=== PATIENT | male | born 1985 | race Caucasian/White ===

== ENCOUNTER 2022-09-26 08:05 | Inpatient (IN) | payer MEDICAID ==
[~2022-09-26] VITALS: Ht 177.8 cm; Wt 100.2 kg
[2022-09-26 08:33] LABS: BG BASE EXCESS -28.9 mmol/L (-2.0-2.0); BG CARBOXYHEMOGLOBIN 1.5 % (0.5-1.5); BG DEOXYHEMOGLOBIN 1.8 % (0.0-5.0); BG FRACTION INSPIRED OXYGEN 21; BG HCO3 ACT 2.4 mmol/L (22.0-26.0); BG METHEMOGLOBIN 0.3 % (0.0-1.5); BG OXYGEN SATURATION 98.2 % (92.0-98.5); BG OXYHEMOGLOBIN 96.4 % (94.0-97.0); BG PCO2 12.3 mmHg (35.0-45.0); BG PH 6.915 (7.350-7.450); BG PO2 137.8 mmHg (75.0-100.0); BG SAMPLE SITE LEFT RADIAL; BG VENT MODE ROOM AIR
[2022-09-26] MEDS ORDERED: SODIUM CHLORIDE 0.9% 1,000 ML IV ONE (08:45)
[2022-09-26 08:56] LABS: CHLORIDE 88 mEq/L (98-107)
[2022-09-26 09:12] LABS: HEMATOCRIT. 52.4 % (42.0-52.0); HEMOGLOBIN. 16.5 g/dL (14.0-18.0); MEAN CORPUSCULAR HEMOGLOBIN 33.4 pg (28.0-32.0); MEAN PLATELET VOLUME 9.5 fl (7.4-10.4); PLATELET 267 x1000/uL (130-400); RED BLOOD CELL COUNT 4.94 mill/uL (4.7-6.1); RED CELL DISTRIBUTION WIDTH 14.1 % (11.6-14.6)
[2022-09-26] MEDS ORDERED: MORPHINE SULFATE 4 MG/ML CPJ (NOT FOR IM USE) IV ONE (09:30)
[2022-09-26] MEDS ORDERED: SODIUM CHLORIDE 0.9% 1000ML BAG (SEPSIS BOLUS) IV ONE (09:45)
[2022-09-26] MEDS ORDERED: CHLORDIAZEPOXIDE 25MG CAPSULE PO ONE (09:45)
[2022-09-26] MEDS ORDERED: LORAZEPAM 2MG/ML CPJ IV ONE (09:45)
[2022-09-26 10:11] LABS: PLATELET ESTIMATE NORMAL
[2022-09-26] MEDS ORDERED: HYDRALAZINE 20MG/ML VIAL IV PRN (11:45)
[2022-09-26] MEDS ORDERED: ACETAMINOPHEN 325MG TABLET PO PRN (11:45)
[2022-09-26] MEDS ORDERED: SODIUM CHLORIDE 0.9% 1,000 ML IV SCH (12:00)
[2022-09-26 12:04] LABS: BETA HYDROXYBUTYRATE 13.1 mMol/L (0.0-0.3)
[2022-09-26] MEDS ORDERED: INSULIN REGULAR (DRIP) 100 UNITS in SODIUM CHLORIDE 0.9% 99 ML IV ONE (12:30)
[2022-09-26] MEDS: INSULIN REGULAR 100U/100ML PMX 100 ML IV NR (13:20)
[2022-09-26] MEDS: PANTOPRAZOLE SODIUM 40 MG/VIAL IV SCH (14:07)
[2022-09-26 15:22] LABS: CHLORIDE 102 mEq/L (98-107)
[2022-09-26 16:45] LABS: CHLORIDE 101 mEq/L (98-107)
[2022-09-26] MEDS ORDERED: CALCIUM GLUCONATE 1GM PREMIX 50 ML IV NR (18:45)
[2022-09-26] MEDS ORDERED: SODIUM POLYSTYRENE SULFONATE 15 G/60 ML BOT PO NR (18:45)
[2022-09-26] MEDS ORDERED: CALCIUM GLUCONATE 1,000 MG in DEXT 5% WATER 90 ML IV ONE (18:45)
[2022-09-26] MEDS ORDERED: SODIUM BICARBONATE 8.4% 1 MEQ/ML 50ML SYR IV NR (18:45)
[2022-09-26] MEDS: ONDANSETRON HCL 4MG/2ML INJ IV PRN (20:11)
[2022-09-26 20:44] LABS: CHLORIDE 103 mEq/L (98-107)
[2022-09-26] MEDS: DEXT 5%/0.45% NACL 1000ML 1,000 ML IV SCH (21:58)
[2022-09-26] MEDS: CHLORDIAZEPOXIDE 25MG CAPSULE PO SCH ×2 (22:00→22:09)
[2022-09-26 22:45] VITALS: BP 144/75
[2022-09-26 23:00] VITALS: BP_SYST 139; BP_SYST 156; BP_DIAS 78; BP_DIAS 98
[2022-09-26 23:30] VITALS: BP 142/71
[2022-09-27] VITALS (28 sets, daily range): BP systolic 110–170; BP diastolic 52–108
[2022-09-27] MEDS ORDERED: DEXTROSE 50% WATER 50ML SYRINGE IV PRN ×2
[2022-09-27] MEDS: DEXT 5%/0.45% NACL 1000ML 1,000 ML IV SCH ×4 (00:54→17:59)
[2022-09-27] MEDS: INSULIN REGULAR 100U/100ML PMX 100 ML IV NR (00:54)
[2022-09-27] MEDS: BLOOD SUGAR DIAGNOSTIC STRIP TEST SCH ×22 (00:55→23:00)
[2022-09-27] MEDS: LORAZEPAM 2MG/ML CPJ IV PRN ×2 (00:56→10:43)
[2022-09-27 05:46] LABS: HEMATOCRIT. 44.1 % (42.0-52.0); HEMOGLOBIN. 14.8 g/dL (14.0-18.0); MEAN CORPUSCULAR HEMOGLOBIN 33.1 pg (28.0-32.0); MEAN CORPUSCULAR VOLUME 98.8 fL (80.0-94.0); MEAN PLATELET VOLUME 9.3 fl (7.4-10.4); PLATELET 150 x1000/uL (130-400); RED BLOOD CELL COUNT 4.46 mill/uL (4.7-6.1)
[2022-09-27] MEDS: CHLORDIAZEPOXIDE 25MG CAPSULE PO SCH ×3 (06:00→21:52)
[2022-09-27] MEDS: ONDANSETRON HCL 4MG/2ML INJ IV PRN (07:55)
[2022-09-27] MEDS: INSULIN REGULAR 100U/100ML PMX 100 ML IV SCH (07:55)
[2022-09-27] MEDS: PANTOPRAZOLE SODIUM 40 MG/VIAL IV SCH (08:54)
[2022-09-27 12:49] LABS: PLATELET ESTIMATE NORMAL
[2022-09-27 13:42] LABS: *AMPHETAMINES SCREEN URINE NEGATIVE (NEGATIVE); *BARBITURATES SCREEN URINE NEGATIVE (NEGATIVE); *BENZODIAZEPINES SCREEN URINE PRESUMTIVE POSITIVE (NEGATIVE); *COCAINE SCREEN URINE NEGATIVE (NEGATIVE); CANNABINOID URINE SCREEN NEGATIVE (NEGATIVE); METHADONE URINE SCREEN NEGATIVE (NEGATIVE); OPIATES URINE SCREEN NEGATIVE (NEGATIVE); PHENCYCLIDINE URINE SCREEN NEGATIVE (NEGATIVE)
[2022-09-27 15:20] LABS: HEPATITIS B SURFACE AB 117.9 mIU/mL
[2022-09-27 17:24] LABS: PHOSPHORUS 0.3 mg/dL (2.5-4.9)
[2022-09-27] MEDS ORDERED: POTASSIUM PHOS,M-BASIC-D-BASIC 30 MMOL in SODIUM CHLORIDE 0.9% 500 ML IV NR (18:30)
[2022-09-28] VITALS (22 sets, daily range): BP systolic 110–205; BP diastolic 54–96
[2022-09-28] MEDS: BLOOD SUGAR DIAGNOSTIC STRIP TEST SCH ×18 (01:00→21:00)
[2022-09-28] MEDS: DEXT 5%/0.45% NACL 1000ML 1,000 ML IV SCH ×3 (02:15→08:56)
[2022-09-28] MEDS: INSULIN REGULAR 100U/100ML PMX 100 ML IV SCH (02:17)
[2022-09-28] MEDS: CHLORDIAZEPOXIDE 25MG CAPSULE PO SCH ×4 (06:00→21:36)
[2022-09-28 06:31] LABS: HEMATOCRIT. 42.4 % (42.0-52.0); HEMOGLOBIN. 14.4 g/dL (14.0-18.0); MEAN CORPUSCULAR HEMOGLOBIN 33.1 pg (28.0-32.0); MEAN CORPUSCULAR VOLUME 97.6 fL (80.0-94.0); MEAN PLATELET VOLUME 9.7 fl (7.4-10.4); PLATELET 133 x1000/uL (130-400); RED BLOOD CELL COUNT 4.34 mill/uL (4.7-6.1); RED CELL DISTRIBUTION WIDTH 14.3 % (11.6-14.6)
[2022-09-28] MEDS ORDERED: POTASSIUM CHLORIDE 20MEQ TABLET SR PO NR (06:45)
[2022-09-28] MEDS: PANTOPRAZOLE SODIUM 40 MG/VIAL IV SCH (09:00)
[2022-09-28] MEDS ORDERED: INSULIN GLARGINE 100 UNITS/ML SUBCUT NR (11:00)
[2022-09-28] MEDS ORDERED: DEXTROSE 50% WATER 50ML SYRINGE IV PRN (11:30)
[2022-09-28] MEDS: AMLODIPINE 10MG TABLET PO SCH (12:06)
[2022-09-28] MEDS: INSULIN LISPRO 100 UNITS/ML SUBCUT SCH ×3 (13:20→21:40)
[2022-09-28] MEDS: LORAZEPAM 2MG/ML CPJ IV PRN (15:30)
[2022-09-28] MEDS ORDERED: HYDRALAZINE 10 MG in SODIUM CHLORIDE 0.9% 49.5 ML IV PRN (17:15)
[2022-09-28] MEDS ORDERED: MELO-106 PO (17:24)
[2022-09-28] MEDS ORDERED: INSU100I13 SQ (17:25)
[2022-09-28] MEDS ORDERED: L25 PO (17:27)
[2022-09-28] MEDS: INSULIN GLARGINE 100 UNITS/ML SUBCUT SCH (21:41)
[2022-09-29] VITALS: BP 130/79
[2022-09-29 04:00] VITALS: BP 140/76
[2022-09-29] MEDS: CHLORDIAZEPOXIDE 25MG CAPSULE PO SCH ×2 (06:48→14:46)
[2022-09-29] MEDS: BLOOD SUGAR DIAGNOSTIC STRIP TEST SCH ×3 (06:51→17:08)
[2022-09-29] MEDS: LORAZEPAM 2MG/ML CPJ IV PRN (07:01)
[2022-09-29] MEDS: INSULIN LISPRO 100 UNITS/ML SUBCUT SCH ×5 (07:15→17:50)
[2022-09-29 08:00] VITALS: BP 115/78
[2022-09-29 08:32] LABS: PLATELET ESTIMATE NORMAL
[2022-09-29] MEDS: PANTOPRAZOLE SODIUM 40 MG/VIAL IV SCH (10:36)
[2022-09-29] MEDS: AMLODIPINE 10MG TABLET PO SCH (10:37)
[2022-09-29] MEDS: INSULIN GLARGINE 100 UNITS/ML SUBCUT SCH (10:41)
[2022-09-29 12:00] VITALS: BP 125/83
[2022-09-29] MEDS ORDERED: INSULIN GLARGINE 100 UNITS/ML SUBCUT SCH (13:00)
[2022-09-29 16:00] VITALS: BP 112/69
[2022-09-29 17:35] VITALS: BP 125/83
== END 2022-09-29 19:45 | disposition home or self-care (01) | DRG 420 ==
LOC: ER 08:05 → CVICU 10:36 → EDBEDREQTM 10:38 → EDBEDREQ 10:38 → 6EST 09-28 17:07
PROVIDERS: ADMIT Internal Medicine; ATTEND Internal Medicine
DX: E11.10 Type 2 diabetes mellitus with ketoacidosis without coma (principal); E87.1 Hypo-osmolality and hyponatremia; E87.5 Hyperkalemia; R74.01 Elevation of levels of liver transaminase levels; F10.10 Alcohol abuse, uncomplicated
CPT/HCPCS: 36415; 36600; 71045; 76700; 80048; 80053; 80305; 82010; 82375; 82805; 82962; 83036; 83735; 83880; 84100; 84145; 84484; 85025; 86706; 86803; 93005; 99285; C9113; J0360; J0610; J1815; J2060; J2405; J3490; J7030; J7040; J7050